=== PATIENT | female | born 1960 | race Caucasian/White ===

== ENCOUNTER 2022-04-09 04:00 | Emergency (ER) | payer BC ==
--- OUTSIDE RECORDS SUMMARY | 2022-04-09 04:03 | XMS REPORT | Continuity of Care Document ---
:1960 Author Organization Formerly [facility] t Address [address] [place] [place] [address] Care Team Providers Name Role Phone Shelbi Ritchie MD Primary Care Physician MIGUELINA Attending Clinician Unavailable Mark RN, Susan Attending Clinician Unavailable Nasim Chávez MD Attending Clinician [phone] Vahid Ma MD Attending Clinician Frandy Bhandari MD Attending Clinician MD VAHID MA Attending Clinician Unavailable SHELBI RITCHIE Attending Clinician Unavailable MIGUELINA Admitting Clinician Unavailable VAHID MA Admitting Clinician Unavailable MD VAHID MA Admitting Clinician Unavailable Payers Payer Name Policy Type Policy Number Effective Date Expiration Date [facility] [id number] 2016 (PPO) 00:00:00 Problems Condition Condition Condition Status Onset Resolution Last Treating Co mments Source Name Details Category Date Date Treatment Clinician Date Exertional Exertional Disease Active 2020-07 [facility] chest pain chest pain 09-13 st 00:00: Hospita 00 l Stable Stable Disease Active 2020-07 [facility] angina angina 2-[facility] 00:00: Hospita 00 l Hyperlipid Hyperlipid Disease Active 2020-07 M [facility]i emia emia 09-13 st 00:00: Hospita 00 l Asthma Asthma Disease Active 2020-[address] 00:00: Hospita 00 l Coronary Coronary Disease Active 2020-07 Metho di artery artery 2- st disease disease 00:00: Hospita with with 00 l stable stable angina angina pectoris pectoris Intractabl Intractabl Disease Active M ethodi e e 5-15 st abdominal abdominal 00:00: Hosp anthony pain pain 00 l Left upper Left upper Disease Active M [facility] quadrant quadrant 5-15 st pain pain 00:00: Hospita 00 l Allergies, Adverse Reactions, Alerts Allergy Allergy Status Severity Reaction(s) Onset Inactive Treating Comm ents Source Name Type Date Date Clinician Jane Quinones Active Anaphylaxis Patient [facility] ins ty to 5-[address] adverse 00:00: reaction Hospita reaction 00 in 1980. l s to Patient drug has tolerated ceftriaxo ne and ceftin in the past without reaction. Family History Family Member Diagnosis Comments Start Date Stop Date Source Natural sister Heart disease [facility] father Heart disease [facility] mother Cancer [facility] Natural mother Heart disease [facility] mother Hypertension [facility] Social History Social Habit Start Date Stop Date Quantity Comments Source Alcohol intake 2021-07-31 2021-07-31 Ex-drinker [facility] 00:00:00 00:00:00 (finding) Hospital Tobacco use and 2017-08-29 2017-08-29 Smokeless tobacco [facility] exposure 00:00:00 00:00:00 non-user [facility] Sex Assigned At [birth year] [facility] 00:00:00 [facility]:00 Hospital Smoking Status Start Date Stop Date Source Never smoked tobacco [facility] Medications Ordered Filled Start Stop Current Ordering Indication Dosage Frequency Signature Comments Components Source Medication Medication Date Date Medication? Clinician (SIG) Name Name aspirin 2020-07 Yes 81mg QD Take 81 mg Meth jesus (ECOTRIN) 2-[address] 81 MG 13:11: daily. Hospita enteric 04 l coated tablet albuterol 2020-07 Yes 2{puff} Q6H Inhale 2 M [facility] (PROAIR 2-[address] HFA) 90 13:11: every 6 Hospita mcg/actuati 04 (six) l on inhaler hours as needed for shortness of breath. phentermine 2020-07 1{tbl} 1 tablet. [facility] (ADIPEX-P) 2-15 07-23 st 37.5 mg 13:11: 00:00 Hospita tablet 04 :00 l bisoproloL- 2020-07 No 1{tbl} QD Take 1 M [facility]i hydrochloro 09-[address] thiazide 00:00: 05:59 mouth Hospita (ZIAC) 00 :00 daily for l 10-6.25 mg 30 days. per tablet valsartan 2020-07 160mg QD Take 1 Meth jesus (DIOVAN) 09-15- tablet st 160 MG 00:00: 05:59 (160 mg Hospita tablet 00 :00 total) by l mouth daily for 30 days. rosuvastati 2020-07 Yes 20mg QD Take 20 mg [facility] n (CRESTOR) 2- by mouth st 20 mg 00:00: daily. [facility]ospita tablet 00 l metoprolol 2020-07 No 50mg Q.5D Take 50 mg [facility] tartrate 09-[address] (LOPRESSOR) 00:00: 00:00 (two) Hosp anthony 50 mg 00 :00 times a l tablet day. nitroglycer 2020-[address] 0.4 M [facility]i in 1-[address] (NITROSTAT) 00:00: the tongue Hospita 0.4 MG SL 00 every 5 l tablet (five) minutes as needed. For 3 doses max montelukast Yes 10mg QD Take 10 mg [facility] (SINGULAIR) 9-[address] 10 mg 00:00: daily. [facility]ospita tablet 00 l Vital Signs Vital Name Observation Time Observation Value Comments Source Systolic blood 2021-07-14 17:00:00 108 mm[Hg] [facility] pressure Diastolic blood 2021-07-14 17:00:00 66 mm[Hg] [facility] pressure Heart rate 2021-07-14 17:00:00 56 /min [facility] Body temperature 2021-07-14 17:00:00 35.94 Hannah [facility] Respiratory rate 2021-07-14 17:00:00 16 /min [facility] Oxygen saturation in 2021-07-14 17:00:00 94 /min [facility] Arterial blood by Pulse oximetry Body height 2021-07-13 18:11:00 160 cm [facility] Body weight 2021-07-13 18:11:00 90.266 kg [facility] BMI 2021-07-13 18:11:00 35.25 kg/m2 [facility] Procedures Procedure Date / Time Performing Clinician Source Performed BASIC METABOLIC PANEL 2021-07-14 13:08:00 IvetteFrandy king [facility] LIPID PANEL 2021-07-14 13:08:[facility] CBC HEMOGRAM 2021-07-14 13:08:00 [facility] ESTIMATED GFR 2021-07-14 13:08:00 [facility] ECG 12-LEAD 2021-07-14 06:04:16 [facility] TROPONIN T 2021-07-14 01:17:00 [facility] XR CHEST 1 VW 2021-07-13 22:10:52 [facility] ECG PRE/POST OP 2021-07-13 21:55:56 [facility] PARTIAL THROMBOPLASTIN 2021-07-13 21:53:00 Frandy Bhandari [facility] TIME (PTT) COVID-19 SEROLOGY PATIENT 2021-07-13 21:53[facility] ESTIM[facility] GFR 2021-07-13 21:53:00 [facility] COVID-19 ANTI-SPIKE IGG 2021-07-13 21:53:00 Frandy Bhandari [facility] ANTIBODY TITER TROPONIN T 2021-07-13 21:53:00 IvetteFrandy king [facility] BASIC METABOLIC PANEL 2021-07-13 21:53:00 Ivetteahey, Edward [facility] HC COMPLETE BLD COUNT 2021-07-13 21:53:00 [facility] W/AUTO DIFF PROTHROMBIN TIME WITH INR 2021-07-13 21:53:00 [facility] CV LEFT HEART CATH 2021-07-13 20:49:44 Francesca Yuli Tra Mi [facility] CV RIGHT HEART CATH 2021-07-13 20:49:44 Yuli Ma Mi [facility] COVID-19 QUALITATIVE 2021-07-13 19:58:00 Sunny Gonzalez [facility] RT-PCR ECG PRE/POST OP 2021-07-13 19:53:06 Yuli Ma [facility] HC COMPLETE BLD COUNT 2021-07-13 19:52:00 [facility] W/AUTO DIFF Roque COMPREHENSIVE METABOLIC 2021-07-13 19:52:00 [facility] PANEL Roque TROPONIN T 2021-07-13 19:52:00 [facility] B NATRIURETIC PEPTIDE 2021-07-13 19:52:00 [facility] Roque PROTHROMBIN TIME WITH INR 2021-07-13 19:52:00 Sunny Gonzalez [facility] PARTIAL THROMBOPLASTIN 2021-07-13 19:52:00 Sunny Gonzalez [facility] TIME (PTT) ESTIMATED GFR 2021-07-13 19:52:00 [facility] spital Roque ANTI XA, UNFRACTIONATED 2021-07-13 19:52:00 Sunny Gonzalez [facility] ECG ED PRELIMINARY 2021-07-13 18:47:58 Sunny Gonzalez [facility] INTERPRETATION Plan of Care Planned Activity Planned Date Details Comments Source Future Scheduled 2022-04-05 HEPATITIS B VACCINES [facility] Test 12:04:11 (1 of 3 - 3-dose series) [code = HEPATITIS B VACCINES (1 of 3 - 3-dose series)] Future Scheduled 2022-04-05 COVID-19 VACCINE (#1) [facility] Test 12:04:11 [code = COVID-19 VACCINE (#1)] Future Scheduled 2022-04-05 Pneumococcal Vaccine: [facility] Test 12:04:11 Pediatrics (0 to 5 Years) and At-Risk Patients (6 to 64 Years) (1 - PCV) [code = Pneumococcal Vaccine: Pediatrics (0 to 5 Years) and At-Risk Patients (6 to 64 Years) (1 - PCV)] Future Scheduled 2022-04-05 Hepatitis C screening [facility] Test 12:04:11 (procedure) [code = 009532482] Future Scheduled 2022-04-05 Screening for [facility] Test 12:04:11 malignant neoplasm of cervix (procedure) [code = 656298305] Future Scheduled 2022-04-05 COLONOSCOPY SCREENING [facility] Test 12:04:11 [code = COLONOSCOPY SCREENING] Future Scheduled 2022-04-05 SHINGLES VACCINES (1 Met [facility] Test 12:04:11 of 2) [code = SHINGLES VACCINES (1 of 2)] Future Scheduled 2022-04-05 BREAST CANCER [facility] Test 12:04:11 SCREENING [code = BREAST CANCER SCREENING] Future Scheduled 2022-04-05 INFLUENZA VACCINE [facility] Test 12:04:11 [code = INFLUENZA VACCINE] Encounters Start End Encounter Admission Attending Care Care Encounter Source Date/Time Date/Time Type Type Clinicians Facility Department ID 2022-02-23 2022-02-23 Outpatient AMBREEN_FAR [facility] [id number] [facility] 00:00:00 00:00:00 HANA [id number] [facility] Program 2021-07-17 2021-07-17 Patient Mark, 1.2.840.1 [id number] [facility] 00:00:00 00:00:00 Outreach Susan [id number] 3.430.2.7 Hospit a .[id number] l .8 2021-07-13 2021-07-14 [facility] Nasim Chávez 1.2.840.1 [id number] [facility] 12:26:00 13:11:00 [place] [id number] 3.430.2.7 Hospit a .3.791285 l .8 2021-07-13 2021-07-14 Inpatient FRANCESCA, [facility] [id number] [place] 00:00:00 00:00:00 VAHID [address] 2021-07-13 2021-07-13 Surgery Thony, 1.2.840.1 [id number] [facility] 14:00:00 15:00:00 Frandy Ngoc [address]5625.1.[address] 3.430.2.7 Hospit a .3.505265 l .8 2021-01-27 2021-01-27 Outpatient VALENTINO, [facility] [id number] [place] 00:00:00 00:00:00 SHELBI [address] 2020-02-22 2020-02-22 Emergency MARGUERITE, [facility] [id number] [place] 00:00:00 00:00:00 NASIM [address] Results Test Description Test Time Test Comments Results Result Comments Source ECG 12 lead 2021-08-03 19:50:16 Test Item Value Reference Range Interpretation Comme nts Ventricular rate (test code = 253) Atrial rate (test code = 255) PA interval (test code = 266) QRSD interval (test code = 260) QT interval (test code = 264) QTC interval (test code = 265) P axis 1 (test code = 267) QRS axis 1 (test code = 268) T wave axis (test code = 270) EKG impression (test code = 273) Sinus bradycardia-Otherwise normal ECG-In automated comparison with ECG of 13-JUL-2021 15:55,-No significant change was found- [facility] [id number] 04:46:49 Test Item Value Reference Range Interpretation Comments Ventricular rate (test code = 253) Atrial rate (test code = 255) PA interval (test code = 266) QRSD interval (test code = 260) QT interval (test code = 264) QTC interval (test code = 265) P axis 1 (test code = 267) QRS axis 1 (test code = 268) T wave axis (test code = 270) EKG impression (test Normal sinus code = 273) rhythm-Normal ECG-In automated comparison with ECG of 13-JUL-2021 13:53,-No significant change was found- Rod AguirreARS-CoV-2 (COVID-19) RNA [Presence] in Respiratory specimen by DANA with probe [id number] 00:47:49 Test Item Value Reference Range Interpretation Comments SARS-CoV-2 (COVID-19) RNA Not detected Not-Detected [Presence] in Respiratory specimen by DANA with probe detection (test code = 27907-7) Whether patient is employed in a healthcare setting (test code = 59561-7) Whether the patient has symptoms related to condition of interest (test code = 32461-8) Patient was hospitalized because of this condition (test code = 87421-9) Whether the patient was admitted to intensive care unit (ICU) for condition of interest (test code = 22889-0) Whether patient resides in a congregate care setting (test code = 29624-3)
[2022-04-09] MEDS ORDERED: ONDANSETRON 4 MG/2 ML VIAL ONE ×3 (04:35→07:54)
[2022-04-09] MEDS ORDERED: MORPHINE 4 MG/ML SYR ONE (04:35)
[2022-04-09] MEDS ORDERED: CEFTRIAXONE 1000 MG/VIAL ONE (04:35)
[2022-04-09 04:36] LABS: Urine Blood 3+ (Negative); Urine Glucose Negative (Negative); Urine Protein Trace (Negative); Urine Specific Gravity >=1.030 (1.005-1.030); Urine pH 5.5 (5.0-7.0)
[2022-04-09] MEDS ORDERED: NA CHLORIDE 0.9% 1,000 ML ONE ×2 (04:36→05:58)
[2022-04-09] MEDS ORDERED: KETOROLAC 30 MG/ML INJ ONE (04:36)
[2022-04-09 04:51] LABS: Absolute Lymphocytes (CBC) 3.2 K/uL (0.7-4.9); Hematocrit 43.6 % (36.0-45.0); Lymphocytes % 37.7 % (15.3-44.8); MCV 89.1 fL (80-100); MPV 8.5 fL (7.6-11.3); RBC Red Blood Cell Count 4.89 M/uL (3.86-4.86)
[2022-04-09 05:02] LABS: Calcium Oxalate Crystals- Ur Few /HPF (None Seen); Urine Bacteria <20 /HPF (<20); Urine Mucus Slight /HPF (None Seen); Urine RBC >50 /HPF (None Seen)
[2022-04-09 05:19] LABS: Bilirubin Total 0.3 mg/dL (0.2-1.0); Protein, Total 7.9 g/dL (6.4-8.2)
--- NOTE | 2022-04-09 05:49 | EDPHYS ---
Physician Documentation [facility] Name: Marie Floyd Age: 61 yrs Sex: Female : 1960 Arrival Date: 04/09/2022 Time: 04:04 Bed 14 Private MD: Terry Roberson HPI: 04/09 05:43 This 61 yrs old Female presents to ER via Ambulatory with complaints of Possible Kidney ashish Stone. 05:43 The patient presents with abdominal pain right lower quadrant. Onset: The ashish symptoms/episode began/occurred just prior to arrival. The patient complains of pain in the right mid back. The pain radiates to the right mid back. Onset: The symptoms/episode began/occurred just prior to arrival. Modifying factors: The symptoms are alleviated by remaining still. Associated signs and symptoms: Pertinent positives:. The symptoms radiate to the right flank. Historical: - Allergies: 04:12 PENICILLINS; kl - Home Meds: 04:12 None [Active]; kl - PMHx: 04:12 Kidney stone; kl - PSHx: 04:12 Lithotripsy; renal stent; kl - Immunization history:: Adult Immunizations not up to date. - Social history:: Smoking status: Patient denies any tobacco usage or history of. - Family history:: not pertinent. ROS: 05:43 Constitutional: Negative for fever, chills, and weight loss, Eyes: Negative for injury, ashish pain, redness, and discharge, ENT: Negative for injury, pain, and discharge, Neck: Negative for injury, pain, and swelling, Cardiovascular: Negative for chest pain, palpitations, and edema, Respiratory: Negative for shortness of breath, cough, wheezing, and pleuritic chest pain, Back: Negative for injury and pain, : Negative for injury, bleeding, discharge, and swelling, MS/Extremity: Negative for injury and deformity, Skin: Negative for injury, rash, and discoloration, Neuro: Negative for headache, weakness, numbness, tingling, and seizure. 05:43 Abdomen/GI: Positive for abdominal pain, of the posterior aspect of right lateral abdomen, anterior aspect of right lateral abdomen and right lower quadrant. Exam: 05:43 Constitutional: This is a well developed, well nourished patient who is awake, alert, ashish and in no acute distress. Head/Face: Normocephalic, atraumatic. Eyes: Pupils equal round and reactive to light, extra-ocular motions intact. Lids and lashes normal. Conjunctiva and sclera are non-icteric and not injected. Cornea within normal limits. Periorbital areas with no swelling, redness, or edema. ENT: Nares patent. No nasal discharge, no septal abnormalities noted. Tympanic membranes are normal and external auditory canals are clear. Oropharynx with no redness, swelling, or masses, exudates, or evidence of obstruction, uvula midline. Mucous membranes moist. Neck: Trachea midline, no thyromegaly or masses palpated, and no cervical lymphadenopathy. Supple, full range of motion without nuchal rigidity, or vertebral point tenderness. No Meningismus. Chest/axilla: Normal chest wall appearance and motion. Nontender with no deformity. No lesions are appreciated. Cardiovascular: Regular rate and rhythm with a normal S1 and S2. No gallops, murmurs, or rubs. Normal PMI, no JVD. No pulse deficits. Respiratory: Lungs have equal breath sounds bilaterally, clear to auscultation and percussion. No rales, rhonchi or wheezes noted. No increased work of breathing, no retractions or nasal flaring. Back: No spinal tenderness. No costovertebral tenderness. Full range of motion. Female : Normal external genitalia. Skin: Warm, dry with normal turgor. Normal color with no rashes, no lesions, and no evidence of cellulitis. MS/ Extremity: Pulses equal, no cyanosis. Neurovascular intact. Full, normal range of motion. Neuro: Awake and alert, GCS 15, oriented to person, place, time, and situation. Cranial nerves II-XII grossly intact. Motor strength 5/5 in all extremities. Sensory grossly intact. Cerebellar exam normal. Normal gait. Psych: Awake, alert, with orientation to person, place and time. Behavior, mood, and affect are within normal limits. 05:43 Abdomen/GI: Inspection: distension, Bowel sounds: normal, Palpation: abdomen is soft and non-tender, Liver: no appreciated palpable abnormalities, Hernia: not appreciated. Vital Signs: 04:11 BP 177 / 101; Pulse 74; Resp 20; Temp 97.8(O); Pulse Ox 99% on R/A; Weight 90.72 kg; kl Height 5 ft. 3 in. (160.02 cm); Pain 8/10; 06:42 BP 138 / 79; Pulse 74; Resp 17; Pulse Ox 94% on R/A; Pain 3/10; ja4 07:13 BP 126 / 69; Pulse 65; Resp 13; Pulse Ox 96% on R/A; tp1 08:19 BP 115 / 70; Pulse 57; Resp 13; Pulse Ox 95% on R/A; tp1 04:11 Body Mass Index 35.43 (90.72 kg, 160.02 cm) kl MDM: 04:08 Patient medically screened. [facility] 05:46 Differential diagnosis: UTI, diverticulitis, non-specific abd pain, pancreatitis, ashish Ureterolithiasis, urinary tract infection. Data reviewed: vital signs, nurses notes, lab test result(s), radiologic studies, CT scan. Data interpreted: monitor car operator: rate is 74 beats/min, rhythm is regular, Pulse oximetry: on room air is 99 %. Test interpretation: by ED physician or midlevel provider:. Counseling: I had a detailed discussion with the patient and/or guardian regarding: the historical points, exam findings, and any diagnostic results supporting the discharge/admit diagnosis, lab results, radiology results, the need for outpatient follow up, for definitive care, a family practitioner, a urologist. 04/09 04:08 Order name: CBC with Diff; Complete Time: 05:24 [facility] 04/09 04:08 Order name: CMP; Complete Time: 05:24 [facility] 04/09 04:08 Order name: Lipase; Complete Time: 05:24 [facility] 04/09 04:08 Order name: Urine Microscopic Only; Complete Time: 05:24 [facility] 04/09 04:08 Order name: CT Stone Protocol [facility] 04/09 04:36 Order name: Urine Dipstick-Ancillary; Complete Time: 05:24 EDMS 04/09 04:08 Order name: IV Saline Lock [facility] 04/09 04:08 Order name: Labs collected and sent [facility] 04/09 04:08 Order name: Urine Dipstick-Ancillary (obtain specimen); Complete Time: 04:37 [facility] Administered Medications: 04:34 Drug: NS 0.9% 1000 ml Route: IV; Rate: 1 bolus; Site: right antecubital; ja4 04:34 Drug: Zofran (Ondansetron) 4 mg Route: IVP; Site: right antecubital; ja4 04:34 Drug: Ketorolac 30 mg Route: IVP; Site: right antecubital; ja4 04:34 Drug: morphine 4 mg Route: IVP; Infused Over: 4 mins; Site: right antecubital; ja4 04:39 Drug: Rocephin (cefTRIAXone) 1 grams Route: IV; Rate: per protocol; Site: right ja4 antecubital; 05:52 Drug: Flomax (tamsulosin) 0.4 mg Route: PO; ja4 05:52 Drug: NS 0.9% 1000 ml Route: IV; Rate: 1 bolus; Site: right antecubital; ja4 05:53 Drug: Dilaudid (HYDROmorphone) 1 mg Route: IVP; Site: right antecubital; ja4 05:53 Drug: Zofran (Ondansetron) 4 mg Route: IVP; Site: right antecubital; ja4 07:11 Drug: Magnesium Sulfate 2 grams Route: IVPB; Infused Over: 2 hrs; Site: right ja4 antecubital; 08:28 Follow up: Response: No adverse reaction; IV Status: Completed infusion; IV Intake: tp1 100ml 07:45 Drug: Zofran (Ondansetron) 4 mg Route: IVP; Site: right antecubital; tp1 Disposition Summary: 04/09/22 07:01 Discharge Ordered Location: Home(04/09/22 07:01) ja4 Condition: Stable(04/09/22 07:01) ja4 Diagnosis - Hydronephrosis with renal and ureteral calculous obstruction(04/09/22 07:01) ja4 Forms: - Medication Reconciliation Form ja4 - Thank You Letter ja4 - Antibiotic Education ja4 - Prescription Opioid Use ja4 Signatures: Dispatcher [employer] EDJosie Cruz RN RN kl Anderson, Corey, MD MD cha Parker, Tiffany, RN RN tp1 Zonia Bose MD MD sd2 Biju Orellana RN RN ja4 Corrections: (The following items were deleted from the chart) 07:00 05:48 Home [facility] ja4 07:00 05:48 new [facility] ja4 07:00 05:48 have improved ashish ja4 07:00 05:48 Stable ashish ja4 07:00 05:48 Hydronephrosis with renal and ureteral calculous obstruction - 8 x 4.4 mm uvj, ja4 right ashish
--- NOTE | 2022-04-09 05:49 | ER ---
Nurse's Notes [facility] Name: Marie Floyd Age: 61 yrs Sex: Female : 1960 Arrival Date: 04/09/2022 Time: 04:04 Bed 14 Private MD: Diagnosis: Hydronephrosis with renal and ureteral calculous obstruction Presentation: 04/09 04:11 Chief complaint: Patient states: right flank pain radiates to groin severe pain this kl am. Coronavirus screen: Vaccine status: Patient reports being unvaccinated. Ebola Screen: Patient negative for fever greater than or equal to 101.5 degrees Fahrenheit, and additional compatible Ebola Virus Disease symptoms. Initial Sepsis Screen: Does the patient meet any 2 criteria? No. Patient's initial sepsis screen is negative. Does the patient have a suspected source of infection? No. Patient's initial sepsis screen is negative. Risk Assessment: Do you want to hurt yourself or someone else? Patient reports no desire to harm self or others. Onset of symptoms was April 09, 2022. 04:11 Method Of Arrival: Ambulatory 04:11 Acuity: MURALI 3 kl Triage Assessment: 04:13 General: Appears distressed, uncomfortable, well groomed, well developed, Behavior is kl anxious. Pain: Complains of pain in right flank to right groin. : Reports difficulty with urination. Historical: - Allergies: 04:12 PENICILLINS; kl - Home Meds: 04:12 None [Active]; kl - PMHx: 04:12 Kidney stone; kl - PSHx: 04:12 Lithotripsy; renal stent; kl - Immunization history:: Adult Immunizations not up to date. - Social history:: Smoking status: Patient denies any tobacco usage or history of. - Family history:: not pertinent. Screenin:39 Abuse screen: Denies threats or abuse. Nutritional screening: No deficits noted. ja4 Tuberculosis screening: No symptoms or risk factors identified. Fall Risk IV access (20 points). Assessment: 04:39 General: Appears uncomfortable, well groomed, well nourished, Behavior is calm, ja4 cooperative, appropriate for age. Pain: Complains of pain in back Right flank Pain currently is 9 out of 10 on a pain scale. Pain began 2-3 days ago. GI: No deficits noted. : Reports pain flank(s), urinary frequency. 07:00 Reassessment: PT up for discharge, received report from Dhramesh LUCIO, awaiting completion tp1 of magnesium infusion. 07:11 General: Appears in no apparent distress. comfortable, Behavior is calm, cooperative. tp1 Pain: Denies pain. Neuro: Level of Consciousness is awake, alert, obeys commands, Oriented to person, place, time, situation. Cardiovascular: Patient's skin is warm and dry. Respiratory: Airway is patent Respiratory effort is even, unlabored. 07:42 Reassessment: PT vomiting at bedside, provider notified. tp1 08:00 Reassessment: PT reported nausea is better, states pain and nausea is coming in waves. tp1 denies need for further intervention at this time. Vital Signs: 04:11 BP 177 / 101; Pulse 74; Resp 20; Temp 97.8(O); Pulse Ox 99% on R/A; Weight 90.72 kg; Height 5 ft. 3 in. (160.02 cm); Pain 8/10; 06:42 BP 138 / 79; Pulse 74; Resp 17; Pulse Ox 94% on R/A; Pain 3/10; ja4 07:13 BP 126 / 69; Pulse 65; Resp 13; Pulse Ox 96% on R/A; tp1 08:19 BP 115 / 70; Pulse 57; Resp 13; Pulse Ox 95% on R/A; tp1 04:11 Body Mass Index 35.43 (90.72 kg, 160.02 cm) ED Course: 04:04 Patient arrived in ED. bp1 04:06 Terry Griffin MD is Attending Physician. ashish 04:12 Triage completed. 04:18 Biju Orellana, RN is Primary Nurse. ja4 04:39 CT Stone Protocol In Process Unspecified. EDMS 04:39 Awaiting lab results. ja4 04:39 Patient has correct armband on for positive identification. Bed in low position. Call ja4 light in reach. Side rails up X 1. 04:39 No provider procedures requiring assistance completed. Inserted saline lock: 20 gauge ja4 in right antecubital area, using aseptic technique. Blood collected. 05:49 Pk Bishop MD is Referral Physician. ashish Administered Medications: 04:34 Drug: NS 0.9% 1000 ml Route: IV; Rate: 1 bolus; Site: right antecubital; ja 04:34 Drug: Zofran (Ondansetron) 4 mg Route: IVP; Site: right antecubital; 4 04:34 Drug: Ketorolac 30 mg Route: IVP; Site: right antecubital; 4 04:34 Drug: morphine 4 mg Route: IVP; Infused Over: 4 mins; Site: right antecubital; 4 04:39 Drug: Rocephin (cefTRIAXone) 1 grams Route: IV; Rate: per protocol; Site: right ja4 antecubital; 05:52 Drug: Flomax (tamsulosin) 0.4 mg Route: PO; 4 05:52 Drug: NS 0.9% 1000 ml Route: IV; Rate: 1 bolus; Site: right antecubital; 4 05:53 Drug: Dilaudid (HYDROmorphone) 1 mg Route: IVP; Site: right antecubital; [facility] 05:53 Drug: Zofran (Ondansetron) 4 mg Route: IVP; Site: right antecubital; [facility] 07:11 Drug: Magnesium Sulfate 2 grams Route: IVPB; Infused Over: 2 hrs; Site: right [facility] antecubital; 08:28 Follow up: Response: No adverse reaction; IV Status: Completed infusion; IV Intake: tp1 100ml 07:45 Drug: Zofran (Ondansetron) 4 mg Route: IVP; Site: right antecubital; tp1 Medication: 04:39 VIS not applicable for this client. [facility] Intake: 08:28 IV: 100ml; Total: 100ml. tp1 Outcome: 05:48 Discharge ordered by MD. hinojosa 07:01 Discharge ordered by . bob 08:27 Discharged to home ambulatory. tp1 08:27 Condition: good 08:27 Discharge instructions given to patient, Instructed on discharge instructions, follow up and referral plans. medication usage, Demonstrated understanding of instructions, follow-up care, medications, Prescriptions given X 4. 08:28 Patient left the ED. tp1 Signatures: Dispatcher [employer] EDJosie Cruz RN RN kl Anderson, Corey, MD MD cha Paniauga, Brittany bp1 Parker, Tiffany, RN RN tp1 Esteban, Biju, RN RN ja4
[2022-04-09] MEDS ORDERED: HYDROMORPHONE HCL 1 MG/ML INJ ONE (05:57)
[2022-04-09] MEDS ORDERED: TAMSULOSIN 0.4 MG SR CAP ONE (05:57)
[2022-04-09] MEDS ORDERED: MAGNESIUM SULFATE 1 gm IVPB 2 GM/200 ML BAG IV ONE (05:58)
--- NOTE | 2022-04-09 12:45 | RAD REPORT ---
EXAM DESCRIPTION: CT Abdomen and Pelvis Without Intravenous Contrast CLINICAL HISTORY: The patient is 61 years old and is Female; flank pain TECHNIQUE: Axial computed tomography images of the abdomen and pelvis without intravenous contrast. Sagittal and coronal reformatted images were created and reviewed. This CT exam was performed usi ng one or more of the following dose reduction techniques: automated exposure control, adjustment o f the mA and/or kV according to patient size, and/or use of iterative reconstruction technique. COMPARISON: No relevant prior studies available. FINDINGS: Lung bases: Calcified granulomata in the lung bases bilaterally. ABDOMEN: Liver: Unremarkable. Gallbladder and bile ducts: Cholecystectomy without biliary dilatation. Pancreas: Unremarkable. No ductal dilation. Spleen: Unremarkable. No splenomegaly. Adrenals: Unremarkable. No mass. Kidneys and ureters: Right hydronephrosis and perinephric stranding with a 8.0 x 4.4 mm calculus in the distal right ureter near the UVJ. Punctate bilateral nephrolithiasis. No left-sided hydronephrosis or definite left ureter stone. Stomach and bowel: Colonic diverticulosis. No bowel dilatation or obstruction. No bowel wall thickening. PELVIS: Appendix: No findings to suggest acute appendicitis. Bladder: Bladder is empty. No stones. Reproductive: Unremarkable as visualized. ABDOMEN and PELVIS: Intraperitoneal space: Unremarkable. No free air. No significant fluid collection. Bones/joints: Degenerative facet arthropathy lumbar spine. Vertebral Schmorl's nodes. No acute fracture. No dislocation. Soft tissues: Unremarkable. Vasculature: Unremarkable. No abdominal aortic aneurysm. Lymph nodes: No pathologically enlarged lymph nodes. IMPRESSION: 1. Right hydronephrosis and perinephric stranding with a 8.0 x 4.4 mm calculus in the distal right ureter near the UVJ. 2. Punctate bilateral nephrolithiasis. 3. Colonic diverticulosis. 4. Additional non-emergent findings as above. Electronically signed by: Zonia Isaac MD 04/09/2022 5:18 AM CDT Due to temporary technical issues with the PACS/Fluency reporting system, reports are being signed by the in house radiologists without review as a courtesy to insure prompt reporting. The interpreting radiologist is fully responsible for the content of the report.
[2022-04-10 13:37] VITALS: TEMP 97.8
[2022-04-10 14:12] VITALS: BP 115/70; O2SAT 95
== END 2022-04-09 08:28 | disposition home or self-care (01) ==
LOC: ER 04:00
DX: N13.2 Hydronephrosis with renal and ureteral calculous obstruction (principal); Z87.442 Personal history of urinary calculi
CPT/HCPCS: 96365; 85025; 36415; 83690; 80053; 76377; 74176; 96375; 99284; J3475; J1170; J7030 ×2; J2405 ×3; 81003; 81015